=== PATIENT | male | born 1945 | race Caucasian/White ===

== ENCOUNTER 2020-02-24 06:45 | Day surgery (SDC) | payer MEDICARE, BC, SELFPAY ==
[2020-02-24] MEDS: Tropicam./Phenyleph. (1/2.5%) 5 ML BTL OD ×3 (07:03→07:15)
[2020-02-24 07:04] VITALS: BP 110/78; PULSE 80; RESP 18; TEMP 36.5; O2SAT 97
[2020-02-24] MEDS: Povidone-Iodine Ophth 30 ML BTL (08:40)
[2020-02-24] MEDS: Lidocaine 1% Pres-Free 5 ML VIAL (08:40)
[2020-02-24] MEDS: Tetracaine 0.5% 4 ML BTL OD (08:40)
[2020-02-24] MEDS: Balanced Salt Soln.-PLUS 500 ML BAG (08:40)
[2020-02-24] MEDS: Moxifloxacin-PF 1 MG/ML VIAL (08:40)
[2020-02-24] MEDS: Lidocaine 2% Jelly 6 ML SYR (08:40)
--- NOTE | 2020-02-24 09:05 | ROE_ITS ---
Date of service: 02/24/20 Time of Service: 09:06 Operative Note Operative Note DATE OF PROCEDURE: 02/24/20 PRE-OP DIAGNOSIS: Nuclear/cortical cataract, right eyel Poorly dilating pupil, right eye POST-OP DIAGNOSIS: same PROCEDURE: 1. Cataract extraction by phacoemulsification with intraocular lens implantation, right eye, with pupillary expansion device SURGEON: Senthil Graf ANESTHESIA: MAC (with local sub-tenon's anesthetic injection) PATHOLOGY: none sent COMPLICATIONS: None Patient was transported to: same day Patient's condition: stable Implants: [employer] / [employer] Tecnis [id number] Indications: Progressive decreased vision due to cataract, right eye, with poorly dilating pupil Procedure Description: CATARACT SURGERY OPERATIVE REPORT PREOPERATIVE DIAGNOSIS: 1. Nuclear/cortical cataract, right eye 2. Poorly dilating pupil, right eye POSTOPERATIVE DIAGNOSIS: Same OPERATION: 1. Cataract extraction using phacoemulsification with posterior chamber intraocular lens implant, right eye. 2. Pupillary dilation and iris stabilization using Malyugin Ring IOL: IOL Instructor [employer]/Model: Joon [employer] Joon / AMANUEL Tecnis [id number] IOL Power: + 15.5 diopters IOL Serial Number: [id number] Optic Diameter: 6.0mm Haptic/Overall Diameter: 13.0mm PHACO INFO: Rory [employer] Vision System with OZil and Active Fluidics Cumulative Dispersed Energy (CDE): 6.52 seconds SURGEON: Senthil Graf MD, ROBINSON ANESTHESIA: Monitored Anesthesia Care (MAC), with local sub-tenon's anesthetic infiltration COMPLICATIONS: None SPECIMENS: None INDICATIONS FOR PROCEDURE: The patient is a 74-year-old gentleman with history of progressive decreased vision in both eyes secondary to the development of bilateral nuclear and cortical cataract. He currently takes Flomax and has a poorly dilating pupil. The option of cataract surgery was offered to the patient and he wished to proceed. PROCEDURE: The correct surgical eye was identified and marked as the right eye and the pupil was dilated in the preoperative area using mydriatics and cycloplegics. The dilated pupil size was 4.0 mm. Oral sedation was administered in the form of an Imprimis MKO Melt (midazolam 3mg/ketamine 25mg/ondansetron 2mg). The patient was brought to the operating room where cardiopulmonary monitoring was instituted and surgical time-out was performed, confirming the correct operative eye and IOL power. Topical anesthesia was administered and ophthalmic povidone-iodine 5% was instilled into the conjunctival fornices. Lidocaine gel was applied to the cornea and the rivera-ocular area was prepped with Betadine 10% solution and draped in the usual sterile fashion for intraocular surgery, including an aperture drape. A Tegaderm transparent film dressing was cut in half and used to cover the lashes and lid margins. Care was taken to sequester the lashes and lid margins under the Tegaderm dressing. A lid speculum was placed between the lids of the operative eye and the Saira-Zurdo operating microscope was maneuvered into position. Riley scissors were then used to make a conjunctival buttonhole approximately 6mm posterior to the limbus in the inferonasal quadrant. Blunt dissection was carried out to expose bare sclera, and a blunt-tipped sub-tenon?s anesthesia cannula was introduced and passed posteriorly along the globe where non- preserved plain lidocaine was injected into posterior sub-Tenon?s space. A sideport knife was used to make a paracentesis port inferiortemporally. Intraocular phenylephrine/lidocaine was injected in the anterior chamber. The anterior chamber was filled with Healon Pro. A 2.4mm keratome knife was used to create a half-thickness groove at the limbus and then to construct a three-plane near-clear corneal tunnel extending 2.0mm into clear cornea superiortemporally. A 7.0 mm Malyugin Ring was then inserted into the pupillary space and engaged with the Kuglen hook. A flap was raised on the anterior capsule and capsulorhexis forceps were used to complete a continuous curvilinear capsulor hexis of 5.0 mm. Balanced salt solution was then used to perform cortical cleaving hydrodissection and nuclear hydrodelineation until the lens could be freely rotated within the capsular bag. The lens nucleus was then disassembled and removed within the capsular bag and iris plane using phacoemulsification. Residual cortical material was removed using the 45-degree angled silicone I/A tip with 0.3mm port. The posterior capsule was carefully polished to remove as much residual lens epithelial cells as safely possible. The capsular bag was then inflated and the anterior chamber deepened with viscoelastic. The lens implant described above was inserted into the capsular bag using the AMANUEL [place] Dehe Injector. A meinKauf hook was used to dial the IOL into position. The Malyugin Ring was removed in the reverse order of its insertion. Residual viscoelastic was then removed first from posterior to the IOL, then from the anterior chamber using the I/A handpiece. The lens implant was noted to center nicely within the capsular bag. The incisions were stromally hydrated, and the anterior chamber was reformed using BSS. Then 0.5cc of moxifloxacin 1.0mg/ml were injected into the capsular bag and anterior chamber. The incisions were checked with a Weck spear and found to be secure. Several drops of ophthalmic povidone-iodine 5% were then applied to the eye followed by two drops of Imprimis combination prednisolone/moxifloxacin/nepafenac solution. The drapes were removed and a clear plastic protective eye shield was placed over the eye. The patient was then returned to Same Day Surgery in stable condition.
--- NOTE | 2020-02-24 09:05 | W.PM.DSUDISC ---
Discharge Plan Disposition Patient Disposition: HOME Condition: Good Discharge Details Attending Provider: Senthil Graf Primary Care Provider: Harry Loya Home Meds and New Rx's Prescriptions: No Action multivitamin Tablet 1 tab PO DAILY RF: 0 furosemide 40 mg tablet 40 mg PO BID RF: 0 atorvastatin 40 mg tablet 40 mg PO DAILY RF: 0 diltiazem HCl 180 mg capsule,extended release 24hr 240 mg PO BID RF: 0 metoprolol succinate 50 mg tablet extended release 24 hr 50 mg PO DAILY RF: 0 ondansetron HCl 8 mg tablet 8 mg PO DIRECTED RF: 0 omeprazole 40 mg capsule,delayed release(DR/EC) 40 mg PO HS RF: 0 acetaminophen 500 mg Tablet 500 mg PO QID PRNRF: 0 tamsulosin 0.4 mg capsule 0.4 mg PO BID RF: 0 vitamin B complex Tablet 1 tab PO DAILY RF: 0 folic acid 1 mg tablet 1 mg PO DAILY RF: 0 allopurinol 300 mg tablet 150 mg PO DAILY RF: 0 albuterol sulfate [ProAir HFA] 90 mcg/actuation Hfa Aerosol Inhaler 2 puff INHALATION Q4H PRNRF: 0 ferrous sulfate 325 mg (65 mg iron) Capsule, Extended Release 325 mg PO BID RF: 0 insulin lispro protamin-lispro [Humalog Mix 75-25 KwikPen] 100 unit/mL (75-25) insulin pen 50 unit SUBCUT BID RF: 0 bupropion HCl 300 mg tablet extended release 24 hr 300 mg PO DAILY RF: 0 Combigan 0.2-0.5 % drops 1 drp ophthalmic (eye) BID RF: 0 Discharge Instructions Stand Alone Forms: Post-op Topical Cataract, Debbie Perez (DSU) Discharge Orders Discharge Orders: Discharge Order (Routine); Ordered 02/24/20 Ordered By: Senthil Graf DS: Diagnosis Discharge Diagnosis (1) Nuclear sclerotic cataract of right eye: Status: Resolved (2) Cortical cataract of right eye: Status: Resolved
[2020-02-24 09:35] VITALS: BP 108/50; PULSE 68; RESP 16; TEMP 36.5; O2SAT 96
== END 2020-02-24 09:45 | disposition home or self-care (01) ==
PROVIDERS: PCP Family Medicine; Visit Provider Ophthalmology
PROC: (CPT 66982; principal; 2020-02-24 08:15)
DX: H25.11 Age-related nuclear cataract, right eye (principal); H25.011 Cortical age-related cataract, right eye; H57.09 Other anomalies of pupillary function; T44.6X5A Adverse effect of alpha-adrenoreceptor antagonists, initial encounter; I48.0 Paroxysmal atrial fibrillation; I50.9 Heart failure, unspecified; I11.0 Hypertensive heart disease with heart failure; G47.33 Obstructive sleep apnea (adult) (pediatric); K21.9 Gastro-esophageal reflux disease without esophagitis; E11.9 Type 2 diabetes mellitus without complications; Z79.4 Long term (current) use of insulin
CPT/HCPCS: 66982; V2632

== ENCOUNTER 2020-03-05 07:54 | Day surgery (SDC) | payer MEDICARE, BC, SELFPAY ==
[2020-03-05 08:03] VITALS: BP 115/58; PULSE 71; RESP 18; TEMP 36.3; O2SAT 97
[2020-03-05] MEDS: Tropicam./Phenyleph. (1/2.5%) 5 ML BTL OS ×3 (08:25→08:38)
[2020-03-05] MEDS: Tetracaine 0.5% 4 ML BTL OS (09:38)
[2020-03-05] MEDS: Lidocaine 2% Jelly 6 ML SYR (09:38)
[2020-03-05] MEDS: Povidone-Iodine Ophth 30 ML BTL (09:39)
[2020-03-05] MEDS: Lidocaine 1% Pres-Free 5 ML VIAL (09:44)
[2020-03-05] MEDS: Balanced Salt Soln.-PLUS 500 ML BAG (09:49)
--- NOTE | 2020-03-05 10:10 | W.PM.DSUDISC ---
Discharge Plan Discharge Details Attending Provider: Senthil Graf Primary Care Provider: Harry Loya Home Meds and New Rx's Prescriptions: No Action multivitamin Tablet 1 tab PO DAILY RF: 0 furosemide 40 mg tablet 40 mg PO BID RF: 0 atorvastatin 40 mg tablet 40 mg PO DAILY RF: 0 diltiazem HCl 180 mg capsule,extended release 24hr 240 mg PO BID RF: 0 metoprolol succinate 50 mg tablet extended release 24 hr 50 mg PO DAILY RF: 0 ondansetron HCl 8 mg tablet 8 mg PO DIRECTED RF: 0 omeprazole 40 mg capsule,delayed release(DR/EC) 40 mg PO HS RF: 0 acetaminophen 500 mg Tablet 500 mg PO QID PRNRF: 0 tamsulosin 0.4 mg capsule 0.4 mg PO BID RF: 0 vitamin B complex Tablet 1 tab PO DAILY RF: 0 folic acid 1 mg tablet 1 mg PO DAILY RF: 0 allopurinol 300 mg tablet 150 mg PO DAILY RF: 0 albuterol sulfate [ProAir HFA] 90 mcg/actuation Hfa Aerosol Inhaler 2 puff INHALATION Q4H PRNRF: 0 ferrous sulfate 325 mg (65 mg iron) Capsule, Extended Release 325 mg PO BID RF: 0 insulin lispro protamin-lispro [Humalog Mix 75-25 KwikPen] 100 unit/mL (75-25) insulin pen SUBCUT BID RF: 0 bupropion HCl 300 mg tablet extended release 24 hr 300 mg PO DAILY RF: 0 Combigan 0.2-0.5 % drops 1 drp ophthalmic (eye) BID RF: 0 Discharge Instructions Stand Alone Forms: Post-op Block Cataract, Post-op Topical Cataract, Press Ganey (DSU) DS: Diagnosis Discharge Diagnosis (1) Nuclear sclerotic cataract of left eye: Status: Resolved (2) Cortical cataract of left eye: Status: Resolved
--- NOTE | 2020-03-05 10:11 | W.PM.OP ---
Date of service: 03/05/20 Time of Service: 10:11 Operative Note Operative Note DATE OF PROCEDURE: 03/05/20 PRE-OP DIAGNOSIS: Nuclear/cortical cataract, left eye; Poorly dilating pupil, left eye POST-OP DIAGNOSIS: same PROCEDURE: Cataract extraction by phacoemulsification with intraocular lens implantation, left eye, with pupillary expansion device SURGEON: Senthil Graf ANESTHESIA: MAC and local (sub-tenon's anesthetic infiltration) ESTIMATED BLOOD LOSS: 0 PATHOLOGY: none sent COMPLICATIONS: None Patient was transported to: same day Patient's condition: stable Implants: [employer]oon / [employer] Tecnis [id number] Indications: Progressive decreased vision, left eye Procedure Description: CATARACT SURGERY OPERATIVE REPORT PREOPERATIVE DIAGNOSIS: 1. Nuclear/cortical cataract, left eye 2. Poorly dilating pupil, left eye POSTOPERATIVE DIAGNOSIS: Same OPERATION: 1. Cataract extraction using phacoemulsification with posterior chamber intraocular lens implant, left eye. 2. Pupillary dilation and iris stabilization using Malyugin Ring IOL; IOL Consultant Electronics/Model: Joon [employer] Joon / AMANUEL Tecnis [id number] IOL Power: + 15.0 diopters IOL Serial Number: [id number] Optic Diameter: 6.0 mm Haptic/Overall Diameter: 13.00 mm PHACO INFO: Rory [employer]rurion Vision System with OZil and Active Fluidics Cumulative Dispersed Energy (CDE): 6.69 seconds SURGEON: Senthil Graf MD, ROBINSON ANESTHESIA: Monitored Anesthesia Care (MAC), with local sub-tenon's anesthetic infiltration COMPLICATIONS: None SPECIMENS: None INDICATIONS FOR PROCEDURE: Patient is a 74-year-old gentleman with history of diminished visual acuity in both eyes secondary to the development of nuclear and cortical cataract. He is significantly symptomatic that he desires cataract surgery attempt to improve and maximize his vision. He has already undergone cataract surgery in the right eye and is doing well postoperatively. He now presents for cataract surgery in the left eye. PROCEDURE: The correct surgical eye was identified and marked as the left eye and the pupil was dilated in the preoperative area using mydriatics, cycloplegics, and NSAIDS (except in aspirin allergic patients). The dilated pupil size was 4.0 mm. Oral sedation was administered in the form of an Imprimis MKO Melt (midazolam 3mg/ketamine 25mg/ondansetron 2mg). The patient was brought to the operating room where cardiopulmonary monitoring was instituted and surgical time-out was performed, confirming the correct operative eye and IOL power. Topical anesthesia was administered and ophthalmic povidone-iodine 5% was instilled into the conjunctival fornices. Lidocaine gel was applied to the cornea and the rivera-ocular area was prepped with Betadine 10% solution and draped in the usual sterile fashion for intraocular surgery, including an aperture drape. A Tegaderm transparent film dressing was cut in half and used to cover the lashes and lid margins. Care was taken to sequester the lashes and lid margins under the Tegaderm dressing. A lid speculum was placed between the lids of the operative eye and the Saira-Zurdo operating microscope was maneuvered into position. Riley scissors were then used to make a conjunctival buttonhole approximately 6mm posterior to the limbus in the inferonasal quadrant. Blunt dissection was carried out to expose bare sclera, and a blunt-tipped sub-tenon?s anesthesia cannula was introduced and passed posteriorly along the globe where non-preserved plain lidocaine was injected into posterior sub-Tenon?s space. A sideport knife was used to make a paracentesis port superiorly/superiortemporally. Intraocular phenylephrine/lidocaine was injected into the anterior chamber. The anterior chamber was then filled with viscoelastic. A 2.4mm keratome knife was used to create a half-thickness groove at the limbus and then to construct a three-plane near-clear corneal tunnel extending 2.0mm into clear cornea at the temporal position. A 7.0 mm Malyugin Ring was then inserted into the pupillary space and engaged with the Kuglen hook. A flap was raised on the anterior capsule and capsulorhexis forceps were used to complete a continuous curvilinear capsulorhexis of 5.0 mm. Balanced salt solution was then used to perform cortical cleaving hydrodissection and nuclear hydrodelineation until the lens could be freely rotated within the capsular bag. The lens nucleus was then disassembled and removed within the capsular bag and iris plane using phacoemulsification. Residual cortical material was removed using the 45-degree angled silicone I/A tip with 0.3mm port. The posterior capsule was carefully polished to remove as much residual lens epithelial cells as safely possible. The capsular bag was then inflated and the anterior chamber deepened with viscoelastic. The lens implant described above was inserted into the capsular bag using the AMANUEL [place] Injector. A Kuglen hook was used to dial the IOL into position. The Malyugin Ring was removed in the reverse order of its insertion. Residual viscoelastic was then removed first from posterior to the IOL, then from the anterior chamber using the I/A handpiece. The lens implant was noted to center nicely within the capsular bag. The incisions were stromally hydrated, and the anterior chamber was reformed using BSS. Then 0.5cc of moxifloxacin 1.0mg/ml were injected into the capsular bag and anterior chamber. The incisions were checked with a Weck spear and found to be secure. Several drops of ophthalmic povidone-iodine 5% were then applied to the eye followed by two drops of Imprimis combination prednisolone/moxifloxacin/nepafenac solution. The drapes were removed and a clear plastic protective eye shield was placed over the eye. The patient was then returned to Same Day Surgery in stable condition.
[2020-03-05 10:40] VITALS: BP 113/58; PULSE 70; RESP 18; TEMP 36.2; O2SAT 98
== END 2020-03-05 10:47 | disposition home or self-care (01) ==
LOC: SUR 07:54
PROVIDERS: PCP Family Medicine; Visit Provider Ophthalmology
PROC: (CPT 66982; principal; 2020-03-05 09:45)
DX: H25.12 Age-related nuclear cataract, left eye (principal); H25.012 Cortical age-related cataract, left eye; H57.09 Other anomalies of pupillary function; Z98.41 Cataract extraction status, right eye; Z96.1 Presence of intraocular lens; I48.0 Paroxysmal atrial fibrillation; I10 Essential (primary) hypertension; K21.9 Gastro-esophageal reflux disease without esophagitis; E11.9 Type 2 diabetes mellitus without complications; Z79.4 Long term (current) use of insulin; G47.33 Obstructive sleep apnea (adult) (pediatric)
CPT/HCPCS: 66982; V2632